=== PATIENT | male | born 1980 | race Caucasian/White ===

== ENCOUNTER 2019-09-04 11:24 | Emergency (ER) | payer OTHER, SELFPAY ==
[2019-09-04 11:26] VITALS: BP 188/121; PULSE 83; RESP 17; TEMP 36.7; O2SAT 97; BMI 34.0
[2019-09-04 11:36] VITALS: BP 177/111; PULSE 89; RESP 18; O2SAT 99
--- NOTE | 2019-09-04 12:06 | ED.VIS.UPPEX ---
History of Present Illness Informant: Patient Occurred: Today Mechanism/Context: Incised Onset: Today Context: Sudden Onset Timing: Continuous Quality of Pain: Throbbing Location: left thumb Current Severity: Moderate Maximum Severity: Severe Worsened by: movement Relieved by: nothing Associated Symptoms: Negative for: Parasthesia, Weakness, Loss of Funtion Narrative: 38-year-old year old male right hand dominant male presents with a left thumb laceration. He was cutting a piece of pork with a fresh meat grader. He lacerated his left thumb. He denies numbness or tingling or weakness. He is not on blood thinners. He is not remembering when his last tetanus was. Tetanus Immunization: Unknown Prior similar symptoms: No Recent Illness/Hospitalization: No <Jin Guerin - Last Filed: 09/04/19 12:18> <Kitty Marquez - Last Filed: 09/04/19 12:28> Chief Complaint: Laceration Past Medical History Prior records reviewed: Yes Past Medical History: None Surgical History: no surgical history Lives: With Family Smoking Status: Never smoker Alcohol: None Drugs: None <Jin Guerin - Last Filed: 09/04/19 12:18> <Kitty Marquez - Last Filed: 09/04/19 12:28> - Allergies and Home Meds Allergies/Adverse Reactions: Allergies No Known Allergies Allergy (Verified 09/04/19 11:25) Primary Care Physician: Randy Goncalves DO [STAFF PHYSICIAN] - 7 Days for suture removal Review of Systems All systems negative except as indicated General: Denies: Chills, Fever, Sweats Eyes: Denies: Visual changes - bilaterally, Diplopia ENT: Denies: Rhinorrhea, Sore throat Cardiovascular: Denies: Chest pain, Palpitations Respiratory: Denies: Dyspnea, Cough, Dyspnea on exertion Gastrointestinal: Denies: Abdominal pain, Nausea, Vomiting, Diarrhea, Melena, Hematochezia Genitourinary: Denies: Dysuria, Hematuria, Frequency Musculoskeletal: Denies: Back pain, Extremity Pain Skin: Reports: Abrasions. Denies: Rash, Abscess, Wounds Neurological: Denies: Headache, Weakness, Numbness <Jin Guerin - Last Filed: 09/04/19 12:18> Physical Exam Vital Signs/Narrative: Vital Signs Temp Pulse Resp BP Pulse Ox 09/04/19 11:36 89 18 177/111 H 99 09/04/19 11:26 98.0 F 83 17 188/121 H 97 Inital Vital Signs reviewed: Yes Left Finger: - - Patient has a 5 cm laceration through the distal finger pad aspect of his left thumb and then continuing around through the distal 1/5 of the fingernail but there is a piece of skin attached on the medial aspect. There is minimal active bleeding. He has normal flexion and extension at the IP joint. He has normal active range of motion at the MCP joint. He does have normal sensation throughout the thumb except right at the very distal aspect of the avulsion of skin. General: Well nourished, Well developed Head: Normocephalic, Atraumatic Eyes: Perrl, EOMI ENT: No Trauma, Moist Mucous Membranes Neck: Nontender, Full ROM Cardiovascular: Regular rate, Regular rhythm, No murmurs Respiratory: No distress, CTA bilaterally, Chest nontender Abdomen: Soft, Nontender, Nondistended, Normal bowel sounds Back: Nontender Skin: Normal color, No rash Neurological: Alert, Oriented x3, Cranial nerves II-XII grossly intact, Normal Strength, Normal Sensation Psychological: Normal affect <Jin Guerin - Last Filed: 09/04/19 12:18> Vital Signs/Narrative: Vital Signs Temp Pulse Resp BP Pulse Ox 09/04/19 11:36 89 18 177/111 H 99 09/04/19 11:26 98.0 F 83 17 188/121 H 97 <Kitty Marquez - Last Filed: 09/04/19 12:28> Diagnostic/Tx/Re-eval - Medical Decision Making Tetanus was updated. Under sterile conditions with Betadine prep a digital block was done on the left thumb. The wound was copiously irrigated with sterile saline and cleansed again with Betadine. He did have a near complete avulsion of his fingertip but there was still attachment at the medial aspect. The skin around the finger pad was sutured with a total of 6 sutures. He did have a injury of the laceration that continued through the distal 1/5 of the fingernail. Patient was comfortable with foregoing removing his nail and doing a nailbed repair with sutures. It was again cleansed and the nail was glued with Dermabond and overlying that Steri-Strips were applied. Good approximation was achieved. Patient was placed in a finger splint. Dressing was applied. Proper wound care was discussed with the patient. He was advised that he will need follow-up in 7 to 10 days for suture removal. 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 He did send her a picture of the wound prior to repair being completed and was comfortable with plan. <Jin Guerin - Last Filed: 09/04/19 12:18> - Medical Decision Making Patient presents secondary to laceration to the left distal thumb. Patient was seen and examined with physicians nurse practitioner physicians assistant. Head neck examination unremarkable. Heart regular rate and rhythm. Left upper extremity examination reveals circular laceration on the distal aspect of the left thumb. It is not completely amputated. He does have sensation and cap refill distally. He has good range of motion. Digital block is performed. Repair as per note from JOANN. Tetanus update is provided. Disposition: Discharge <Kitty Marquez - Last Filed: 09/04/19 12:28> Procedures - Lacerations No standard instances Length: 1.97 in Depth: Skin Shape: Linear Prep: Sterile Conditions, Chlorhexadine Laceration Repair: Lidocaine, Nerve block, Wound explored Irrigated (ml): 120 Number of Sutures/Leona: 6 Suture Information: Ethilon, Simple, 4-0 <Jin Guerin - Last Filed: 09/04/19 12:18> ED Disposition <Jin Guerin - Last Filed: 09/04/19 12:18> <Kitty Marquez - Last Filed: 09/04/19 12:28> - Plan for ED Patient: Disposition: Home or Assisted Living Diagnosis: Laceration of left thumb with damage to nail Instructions: ED Laceration Ext Sutr Stap Tape Referrals: Randy Goncalves DO [STAFF PHYSICIAN] - 7 Days for suture removal
[2019-09-04] MEDS: Diphth,Pertuss(Acell),Tet Vac 0.5 ML Vial IM (12:16)
[2019-09-04] MEDS: BACITRACIN 15 GM Tube 1 APPLIC TOPICAL (12:18)
[2019-09-04 12:29] VITALS: BP 156/90; PULSE 78; RESP 16; O2SAT 100
== END 2019-09-04 12:29 | disposition home or self-care (01) ==
LOC: ED 12:20
PROVIDERS: Emergency Provider Physician Assistant Medical
DX: S61.112A Laceration without foreign body of left thumb with damage to nail, initial encounter (principal); Z23 Encounter for immunization; W45.8XXA Other foreign body or object entering through skin, initial encounter; Y93.9 Activity, unspecified; Y92.9 Unspecified place or not applicable; Y99.9 Unspecified external cause status
CPT/HCPCS: 12002; 90471; 90715; 99284